=== PATIENT | male | born 1940 | race Caucasian/White ===

== ENCOUNTER → 2017-01-12 | Outpatient (CLI) | payer MEDICARE, OTHER ==
--- NOTE | 2017-01-12 15:43 | PN ---
DATE OF SERVICE: 01/12/2017 This patient is a 76-year-old gentleman who has been followed in the sleep center for treatment of obstructive sleep apnea/hypopnea syndrome. The patient has been on treatment with CPAP for many years. Last titration was done in 2010. Since that time, the patient has been on treatment with CPAP after he lost weight on 7 cm of water. Recently the patient developed more problems related to prostate and he significantly increased the number of episodes when he goes to the bathroom at night. At present some medication related to prostate was added at increased dose and with that he is improving. I checked his CPAP unit. CPAP pressure is 7 cm of water. Usage is 27 out of 30 nights for more than 4 hours. Average usage is 6 hours. Pressure is 7 cm of water. No leak at all. Apnea/hypopnea index for last month was 3.6, for the last night 1.1. RAMP is an automatic regimen. [place] Sleepiness Scale today is 5. MEDICATIONS: 1. Atenolol. 2. Doxazosin. 3. Finasteride. 4. Metformin. 5. Nexium. 6. Simvastatin. 7. Aspirin. 8. Vitamin supplement. 9. Glucosamine. 10. Gingko biloba. 11. Delmar-3. 12. Glucosamine. 13. Antihistamines as necessary. During physical exam, patient is in no distress. BP 122/64, HR 60, RR 16. Height 5 feet 11-1/2 inches. Weight 263. BMI 36. Temperature 97.9. Oxygen saturation at room air 93%. HEENT: PERRLA. EOMI. Evaluation of oropharynx showed tongue protrudes midline. Low position of soft palate. NECK: Supple. No JVD. Thyroid is not palpable. LUNGS: Clear to percussion and to auscultation. Good air exchange. No wheezing or rhonchi. HEART: S1, S2 regular. No murmurs, gallops or rubs. ABDOMEN: Obese. EXTREMITIES: Tendency for swelling of ankles. TELEPHONE OPERATOR: Awake, alert and oriented x3. Cranial nerves 2 through 7 are intact. There is no fasciculation or atrophy noted. No focal deficits observed. IMPRESSION: 1. Obstructive sleep apnea/hypopnea syndrome, controlled with CPAP, but the patient developed episodes of nocturia. 2. Obesity. 3. Benign prostate hypertrophy. 4. Diabetes mellitus. 5. Hyperlipidemia. 6. Hypertension. 7. Acid reflux. PLAN: 1. I adjusted CPAP up to 10 cm of water. 2. Losing weight. 3. Patient will continue to use his CPAP equipment every night for the whole night. 4. No driving if feeling any sleepiness. 5. Prescription for all necessary CPAP supplies. Thank you very much for allowing me to participate in the management of your patient. Sincerely, Erick Lee. , PhD, FAASM. Diplomat of [place] [employer] Medicine, Sleep Medicine Board by [place] [employer] Specialities [place] Board of Internal Medicine Manager Ship of [facility] [place] [facility]
== END | disposition home or self-care (01) ==
LOC: SLEEP 13:44
PROVIDERS: ATTEND Internal Medicine
DX: G47.33 Obstructive sleep apnea (adult) (pediatric) (principal); E66.9 Obesity, unspecified; N40.0 Benign prostatic hyperplasia without lower urinary tract symptoms; E11.9 Type 2 diabetes mellitus without complications; E78.5 Hyperlipidemia, unspecified; I10 Essential (primary) hypertension; K21.9 Gastro-esophageal reflux disease without esophagitis; Z79.899 Other long term (current) drug therapy; Z79.82 Long term (current) use of aspirin

== ENCOUNTER → 2018-01-10 | Outpatient (CLI) | payer MEDICARE, OTHER ==
--- NOTE | 2018-01-10 15:02 | PN ---
PROGRESS NOTE DATE OF SERVICE: 01/10/2018. 77-year-old gentleman has been followed in Sleep Center for treatment of obstructive sleep apnea-hypopnea syndrome. The patient continued to use his CPAP equipment successfully every night without significant problems. Sleeps well. No sleepiness during the day. [place] Sleepiness Scale is in normal range 4. I checked patient's CPAP unit. CPAP pressure is 10 cm of water. Usage is every night 30/30 nights more than 4 hours, every 6.7 hours. No leak from his mask at all. Apnea- hypopnea index is 3.5, which is totally normal range. MEDICATIONS: Atenolol, doxazosin, finasteride, metformin, omeprazole, simvastatin, aspirin, some supplement for the foot occasionally ibuprofen, antihistamines, occasionally steroid nasal sprays for the nasal problems. PHYSICAL EXAM: Patient in no distress, BP 127/70, HR 59, RR around 20, height 6 feet 0 inches, weight 266.0, BMI 35.9, temperature 98.5, oxygen saturation on room air 95%. Oropharynx low position of soft palate. ABDOMEN: Obese. Neck: Supple, no JVD. Thyroid is not palpable. LUNGS: Few rales on the bases of the lungs. HEART S1, S2 regular. No murmurs, gallops, or rubs. ABDOMEN: Obese. Soft and nontender. Bowel sounds are present. No organomegaly appreciated. EXTREMITIES: 1+ ankle edema. No clubbing or cyanosis. PULP DRIER Awake, alert, and oriented X3. Cranial nerves 2 to 7 intact. There is no fasciculation or atrophy. noted. No focal deficits observed. IMPRESSION: 1. Obstructive sleep apnea-hypopnea syndrome. Patient demonstrated 100% compliance with treatment benefitting from treatment. 2. Obesity, patient increased weight on 3 pounds. 3. Benign prostatic hypertrophy. 4. Hypertension. 5. Hyperlipidemia. 6. Acid reflux. 7. Diabetes mellitus. PLAN: 1. Prescription for all necessary CPAP supplies including mask, tube, filters. 2. Losing weight. 3. Continue to use CPAP equipment every night for the whole night with the same range of pressure. 4. No driving if feeling any sleepiness. 5. Followup visit in 1 year or earlier if patient has any problems. Thank you very much for allowing me to participate in management of your patient. Sincerely, Erick Lee MD, PhD, FAASM Diplomat of [place] [employer] Specialties [place] Board of Internal Medicine [employer] Equipment Mechanic Supervisor of [facility] [place] MMPENGL / DANE: [phone] /
== END | disposition home or self-care (01) ==
LOC: SLEEP 13:50
PROVIDERS: ATTEND Internal Medicine
DX: G47.33 Obstructive sleep apnea (adult) (pediatric) (principal); E66.9 Obesity, unspecified; N40.0 Benign prostatic hyperplasia without lower urinary tract symptoms; I10 Essential (primary) hypertension; E78.5 Hyperlipidemia, unspecified; K21.9 Gastro-esophageal reflux disease without esophagitis; E11.9 Type 2 diabetes mellitus without complications; Z79.84 Long term (current) use of oral hypoglycemic drugs; Z79.899 Other long term (current) drug therapy; Z79.82 Long term (current) use of aspirin; Z79.1 Long term (current) use of non-steroidal anti-inflammatories (NSAID); Z68.35 Body mass index [BMI] 35.0-35.9, adult

== ENCOUNTER → 2019-01-17 | Outpatient (CLI) | payer MEDICARE ==
--- NOTE | 2019-01-17 14:26 | SFUN ---
SLEEP CENTER FOLLOW UP NOTE DATE OF SERVICE: 01/17/2019 A 78-year-old gentleman who has been followed in the Sleep Center for treatment of obstructive sleep apnea-hypopnea syndrome. Patient continued to use CPAP equipment every night for the whole night without any significant problems. He sleeps well, no sleepiness. [place] Sleepiness Scale is 4. I checked CPAP unit. CPAP pressure is 10 cm of water. Usage is 30/30 nights for more than 4 hours with average usage is 6.9 hours per night. Leak is 0 L/minute. Apnea- hypopnea index is 4.3, which is normal range. MEDICATIONS: , atenolol, finasteride, metformin, omeprazole, simvastatin, aspirin, antihistamines, occasionally steroid nasal spray. PHYSICAL EXAM: Patient in no distress. BP 120/70, HR 56, RR 14, height 6 foot, 1 inch, weight, 263 pounds which is 3 pounds less than during the last visit, temperature 98.9, oxygen saturation at room air 95%. OROPHARYNX: Low position of soft palate. Mallampati 4. NECK: 18 inches in circumference. LUNGS Clear to percussion and to auscultation. Good air exchange. No wheezing or rhonchi. HEART S1, S2 regular. No murmurs, gallops, or rubs. ABDOMEN Soft and nontender. Bowel sounds are present. No organomegaly appreciated. EXTREMITIES No clubbing or cyanosis. LABORATORY ASSISTANT Awake, alert, and oriented X3. Cranial nerves 2 to 7 intact. There is no fasciculation or atrophy. noted. No focal deficits observed. IMPRESSION: 1. Obstructive sleep apnea-hypopnea syndrome. Patient demonstrated 100% compliance with treatment, benefitting from treatment. 2. Obesity. 3. History of benign prostatic hypertrophy. 4. Hypertension. 5. Hyperlipidemia. 6. Acid reflux. 7. Diabetes mellitus. PLAN: 1. Patient will continue to use CPAP equipment every night for the whole night 2. I will maintain all necessary prescriptions for CPAP supplies 3. Continue losing weight. 2. No driving if feeling sleepiness. 3. Sleep hygiene with time in bed for at least 8 hours. 4. No driving if feeling sleepiness. 5. Followup visit in 1 year or earlier if patient has any problems. Thank you very much for allowing me to participate in the management of your patient. Sincerely, Erick Lee MD, PhD, FAASM Diplomat of [place] [employer] Specialties [place] Board of Internal Medicine Tribunal Member of [facility] [place] MMPENGL / JOEN: [id number] /
== END | disposition home or self-care (01) ==
LOC: SLEEP 13:15
PROVIDERS: ATTEND Internal Medicine
DX: G47.33 Obstructive sleep apnea (adult) (pediatric) (principal); I10 Essential (primary) hypertension; E11.9 Type 2 diabetes mellitus without complications; E78.5 Hyperlipidemia, unspecified; K21.9 Gastro-esophageal reflux disease without esophagitis; E66.9 Obesity, unspecified; Z87.438 Personal history of other diseases of male genital organs; Z79.84 Long term (current) use of oral hypoglycemic drugs; Z79.82 Long term (current) use of aspirin; Z79.899 Other long term (current) drug therapy; Z99.89 Dependence on other enabling machines and devices

== ENCOUNTER → 2019-04-22 | Outpatient (CLI) | payer MEDICARE ==
--- NOTE | 2019-04-22 13:13 | XR ---
EXAMINATION TYPE: XR lumbosacral spine min 4V DATE OF EXAM: 04/22/2019 COMPARISON: None HISTORY: Right and left knee pain, and 54.5 low back pain TECHNIQUE: 5 view lumbar spine FINDINGS: There are 5 lumbar-type vertebral bodies. The pedicles are intact. Facets have mild degener ative change L4-5 and L5-S1. No spondylolytic defects are evident. Disc heights are narrowed posterio rly through the lumbar spine vertebral body heights are preserved. IMPRESSION: 1. Mild degenerative disc change within the posterior disc spaces of the lumbar spine. 2. Mild lower lumbar spine facet degenerative change.
--- NOTE | 2019-04-22 13:15 | XR ---
EXAMINATION TYPE: XR knee complete bilateral DATE OF EXAM: 04/22/2019 COMPARISON: None HISTORY: Bilateral knee pain TECHNIQUE: Right knee is examined in 3 views. Left knee is examined in 3 views. FINDINGS: No joint effusions are evident. Posterior-inferior patellar spurring is present on the right. There i s narrowing of the medial compartment joint space of the left knee. Milder medial compartment joint s pace narrowing of the right knee is present. No acute fractures or dislocations are evident. IMPRESSION: 1. 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
== END | disposition home or self-care (01) ==
LOC: RADXRMAIN 12:27
PROVIDERS: ATTEND Family Medicine
DX: M17.0 Bilateral primary osteoarthritis of knee (principal); M51.36 Other intervertebral disc degeneration, lumbar region; M47.816 Spondylosis without myelopathy or radiculopathy, lumbar region
CPT/HCPCS: 72110

== ENCOUNTER 2019-05-17 07:33 | Day surgery (SDC) | payer MEDICARE ==
[2019-05-15 11:46] VITALS: BMI 34.9
[~2019-05-17 07:33] MED LIST: LACTATED RINGERS 1,000 ML IV SCH; LIDOCAINE 1% 20 ML VIAL (10MG/ML) FOR IV START INTRADERMA PRN
[2019-05-17 08:08] VITALS: TEMP 97
[2019-05-17] MEDS ORDERED: LIDOCAINE 1% 20 ML VIAL (10MG/ML) FOR IV START SQ ONE (08:18)
[2019-05-17 08:20] LABS: Glucose,Whole Blood 119 mg/dL (75-99)
[2019-05-17] MEDS ORDERED: GLYCOPYRROLATE 0.2 MG/ML 2 ML VIAL ONE (08:37)
[2019-05-17] MEDS ORDERED: PROPOFOL 10 MG/ML 20 ML VIAL IV ONE (08:37)
[2019-05-17] MEDS ORDERED: LIDOCAINE 1% INJ 10MG/ML (20 ML MDV) ONE (08:37)
--- NOTE | 2019-05-17 09:08 | P.PCN ---
Date of Procedure: 05/17/19 Procedure(s) Performed: BRIEF HISTORY: Patient is a 79-year-old, pleasant, white male, scheduled for an upper endoscopy as a part of value should long-standing history of GERD and intermittent dysphagia to solids for the last 3 months duration. Has been on Nexium any milligrams daily for almost 10 years. PROCEDURE PERFORMED: Esophagogastroduodenoscopy with biopsy. PREOPERATIVE DIAGNOSIS: Long-standing history of GERD and intermittent dysphagia to solids. IV sedation per anesthesia. PROCEDURE: After informed consent was obtained, the patient was brought into the endoscopy unit. IV sedation was administered by Anesthesia under continuous monitoring. Initially the Olympus GIF-140 video endoscope was inserted into the mouth. Esophagus intubated without any difficulty. It was gradually advanced into the stomach and duodenum and carefully examined. The bulb and the second part of the duodenum appeared normal. The scope at this time was withdrawn to the stomach, adequately insufflated with air, and upon careful examination, mucosa of the antrum, had gastric polyps noted largest measuring 5 mm which was biopsied. The body, cardia and the fundus appeared normal. The scope was then withdrawn into the esophagus. There was a moderate to large size paraesophageal hiatal hernia noted. The GE junction was located at 39 cm from the incisors. The esophagus appeared normal. There were no erosions or ulcerations seen and the patient tolerated the procedure well. IMPRESSION: 1. Normal-appearing esophagus with no evidence of esophagitis or esophageal stricture. 2. Moderate to large size paraesophageal hiatal hernia. 3. Gastric polyps status post biopsy RECOMMENDATIONS: The findings of this examination were discussed with the patient as well as a family. He was advised to follow with the biopsy results. He will continue with Nexium 20 mg daily and follow antireflux measures..
[2019-05-17 09:12] VITALS: RESP 18
[2019-05-17 09:35] VITALS: BP 152/89; PULSE 61
== END 2019-05-17 09:40 | disposition home or self-care (01) ==
LOC: ORWHC2ENDO 07:33
PROVIDERS: ATTEND Internal Medicine Gastroenterology
DX: K31.7 Polyp of stomach and duodenum (principal); K44.9 Diaphragmatic hernia without obstruction or gangrene; R13.10 Dysphagia, unspecified; K21.9 Gastro-esophageal reflux disease without esophagitis; I10 Essential (primary) hypertension; G47.33 Obstructive sleep apnea (adult) (pediatric); Z99.89 Dependence on other enabling machines and devices; E11.9 Type 2 diabetes mellitus without complications; Z79.84 Long term (current) use of oral hypoglycemic drugs; Z79.82 Long term (current) use of aspirin; Z79.899 Other long term (current) drug therapy
CPT/HCPCS: 88305; 43239; J2001; J2704

== ENCOUNTER → 2020-04-30 | Outpatient (CLI) | payer MEDICARE ==
--- NOTE | 2020-04-30 19:02 | SFUN ---
SLEEP CENTER FOLLOW UP NOTE DATE OF SERVICE: 04/30/2020 This patient is a 80-year-old gentleman who has been followed in Sleep Center for treatment of obstructive sleep apnea-hypopnea syndrome. Patient is continuing to use his CPAP equipment every night for the whole night. He sleeps well with the machine. [place] Sleepiness Scale today is only 2. I checked his CPAP unit. CPAP pressure is 10 cm of water. Usage is 30/30 nights for more than 4 hours. Average usage is 6.9 hours per night. Leak is zero liters per minute. Apnea-hypopnea index is 5.5, which is slightly above 5, which is considered to be on the borderline of normal. The patient is using a nasal pillow mask. MEDICATIONS: 1. Atenolol 25 mg once a day. 2. Finasteride 5 mg once a day. 3. Simvastatin 40 mg once a day. 4. Nexium 40 mg once a day. 5. Metformin 500 mg twice a day. 6. Aspirin 81 mg once a day. 7. Tamsulosin 0.4 mg once a day. PHYSICAL EXAMINATION: GENERAL: A pleasant patient in no distress. VITAL SIGNS: BP 127/77, HR 67, RR 16, height 6 feet, weight 260.8 pounds, BMI 35.2, temperature 98.0. Oxygen saturation at room air 95%. HEENT: PERRLA, EOMI. Evaluation of oropharynx showed tongue protrudes midline. Extremely low position of soft palate. Mallampati IV. NECK: Supple. No JVD. Thyroid is not palpable. LUNGS: Clear to percussion and to auscultation. Good air exchange. No wheezing or rhonchi. HEART: S1, S2 regular. No murmurs, gallops or rubs. ABDOMEN: Obese. EXTREMITIES: No clubbing or cyanosis. FINE UNHAIRER: Awake, alert, and oriented X3. Cranial nerves 2 to 7 intact. There is no fasciculation or atrophy. noted. No focal deficits observed. IMPRESSION: 1. Obstructive sleep apnea-hypopnea syndrome. Patient demonstrated 100% compliance with treatment, benefitting from treatment. 2. Obesity. 3. Benign prostatic hypertrophy. 4. Hypertension. 5. Hyperlipidemia. 6. Acid reflux. 7. Diabetes mellitus. PLAN: 1. I increased pressure in CPAP unit up to 11 cm of water. 2. Patient will continue to use PAP equipment every night for the whole night. 3. Sleep hygiene with regular time in bed for at least 7-1/2 to 8 hours. 4. Precautions related to driving. No driving if feeling sleepiness. 5. I will maintain all necessary prescription for PAP supplies including mask, tube, filters. 6. Watching weight. 7. No driving if feeling sleepiness. 8. Follow-up visit in 6 months or earlier if patient has any problems. Thank you very much for allowing me to participate in the management of your patient. Sincerely, Erick Lee MD, PhD, FAASM Diplomat of [place] Board of Medical Specialties [place] Board of Internal Medicine Green Chainer of [facility] [place] MMODL / IJN: [id number] /
== END | disposition home or self-care (01) ==
LOC: SLEEP 14:53
PROVIDERS: ATTEND Internal Medicine
DX: G47.33 Obstructive sleep apnea (adult) (pediatric) (principal); N40.0 Benign prostatic hyperplasia without lower urinary tract symptoms; I10 Essential (primary) hypertension; E78.5 Hyperlipidemia, unspecified; K21.9 Gastro-esophageal reflux disease without esophagitis; E11.9 Type 2 diabetes mellitus without complications; E66.9 Obesity, unspecified; Z79.899 Other long term (current) drug therapy; Z79.84 Long term (current) use of oral hypoglycemic drugs; Z79.83 Long term (current) use of bisphosphonates; Z99.89 Dependence on other enabling machines and devices

== ENCOUNTER → 2020-10-29 | Outpatient (CLI) | payer MEDICARE ==
--- NOTE | 2020-10-29 16:06 | SFUN ---
SLEEP CENTER FOLLOW UP NOTE DATE OF SERVICE: 10/29/2020 This 80-year-old gentleman has been followed in Sleep Center for treatment of obstructive sleep apnea-hypopnea syndrome. During his previous visit, because of slight increase in apnea-hypopnea index to 5.5, I increased pressure in his CPAP unit to 11 cm of water. Patient continues to use his CPAP equipment. No discomfort related to using the machine. He is receiving his CPAP supplies on time. [place] Sleepiness Scale today is 4. I checked his CPAP unit. CPAP pressure is 11 cm of water. Usage is 30/30 nights for more than 4 hours with average usage 6.5 hours per night. No leak at all; zero liters per minute. Apnea-hypopnea index came down to 4.3, which is in normal range. MEDICATIONS: 1. Atenolol 25 mg once a day. 2. Finasteride 5 mg once a day. 3. Simvastatin 40 mg once a day. 4. Nexium 40 mg once a day. 5. Metformin 500 mg twice a day. 6. Aspirin 81 mg once a day. 7. Tamsulosin 0.4 mg once a day. 8. Losartan 25 mg once a day. 9. Multivitamins. PHYSICAL EXAMINATION: GENERAL: A pleasant patient in no distress. VITAL SIGNS: BP 141/78, HR 80, RR 18, height 6 feet 0 inches, weight 258.6, temperature 97.9, oxygen saturation at room air 98%. Body mass index 34.9. The patient lost about 2 pounds since his previous visit. HEENT: PERRLA, EOMI. Evaluation of oropharynx showed tongue protrudes midline. Extremely low position of soft palate. Mallampati IV. NECK: Supple. No JVD. Thyroid is not palpable. LUNGS: Clear to percussion and to auscultation. Good air exchange. No wheezing or rhonchi. HEART: S1, S2 regular. No murmurs, gallops or rubs. ABDOMEN: Obese. EXTREMITIES: No clubbing or cyanosis. VETERINARY LABORATORY DIAGNOSTICIAN: Awake, alert, and oriented X3. Cranial nerves 2 to 7 intact. There is no fasciculation or atrophy. noted. No focal deficits observed. IMPRESSION: 1. Obstructive sleep apnea-hypopnea syndrome. The patient demonstrated 100% compliance with treatment, benefitting from treatment. After adjustment of CPAP pressure during previous visit, apnea-hypopnea index was reduced to normal range. 2. Obesity. 3. Benign prostatic hypertrophy. 4. Hypertension. 5. Hyperlipidemia. 6. Acid reflux. 7. Diabetes mellitus. PLAN: 1. Patient will continue to use PAP equipment every night for the whole night. 2. Sleep hygiene with regular time in bed for at least 7-1/2 to 8 hours. 3. Precautions related to driving. No driving if feeling sleepiness. 4. I will maintain all necessary prescription for PAP supplies including mask, tube, filters. 5. Watching weight. 6. Follow-up visit in 6 months or earlier if patient has any problems. Thank you very much for allowing me to participate in the management of your patient. Sincerely, Erick Lee MD, PhD, FAASM Diplomat of [place] [employer] of Medical Specialties [place] Board of Internal Medicine Air And Hydronic Balancing Technician of [facility] [place] MMPENGL / DANE: [phone] /
== END ==
LOC: SLEEP 13:15
PROVIDERS: ATTEND Internal Medicine
DX: G47.33 Obstructive sleep apnea (adult) (pediatric) (principal); E66.9 Obesity, unspecified; N40.0 Benign prostatic hyperplasia without lower urinary tract symptoms; I10 Essential (primary) hypertension; E78.5 Hyperlipidemia, unspecified; K21.9 Gastro-esophageal reflux disease without esophagitis; E11.9 Type 2 diabetes mellitus without complications; Z68.34 Body mass index [BMI] 34.0-34.9, adult; Z99.89 Dependence on other enabling machines and devices; Z79.84 Long term (current) use of oral hypoglycemic drugs; Z79.899 Other long term (current) drug therapy; Z87.891 Personal history of nicotine dependence

== ENCOUNTER → 2021-05-06 | Outpatient (CLI) | payer MEDICARE ==
--- NOTE | 2021-05-06 15:09 | SFUN ---
SLEEP CENTER FOLLOW UP NOTE DATE OF SERVICE: 05/06/2021. 81-year-old gentleman who has been followed in Sleep Center for treatment of obstructive sleep apnea-hypopnea syndrome. Patient continued to use his CPAP equipment every night. No snoring with the machine. [place] Sleepiness Scale is 2. I checked his CPAP unit. Pressure is 11 cm of water. Usage is 30/30 nights for more than 4 hours, average 6.1 hours per night. Leak is 0 L/minute. Apnea-hypopnea index increased to 9.1. During the previous visit it was 4.3. CURRENT MEDICATIONS: Nexium 40 mg once a day, metformin 500 mg twice a day, tamsulosin 0.4 mg once a day, finasteride 5 mg once a day, losartan 25 mg once a day, atenolol 25 mg once a day, simvastatin 40 mg once a day, aspirin 81 mg once a day, different supplements including multivitamins, minerals, [place] fish oil, turmeric, . PHYSICAL EXAMINATION: GENERAL: Patient in no distress. BP 158/80, HR 60, RR 15, height 6 feet 0, weight 264.4. Patient increased his weight around 6 pounds since last visit. Oropharynx: Extremely low position of soft palate, Mallampati 4. NECK: Supple, no JVD. Thyroid is not palpable. LUNGS: Clear to percussion and to auscultation. Good air exchange. No wheezing or rhonchi. HEART: S1, S2 regular. No murmurs, gallops, or rubs. ABDOMEN: Obese. Soft and nontender. Bowel sounds are present. No organomegaly appreciated. EXTREMITIES: No clubbing or cyanosis. DATA POWER CONSULTANT: Awake, alert, and oriented X3. Cranial nerves 2 to 7 intact. There is no fasciculation or atrophy. noted. No focal deficits observed. IMPRESSION: 1. Obstructive sleep apnea-hypopnea syndrome. Patient demonstrated 100% compliance with treatment benefitting from treatment. Presently, reading from the machine showed increasing apnea-hypopnea index to 9.1. During the previous visit it was 4.3. 2. Obesity, patient increased weight of 6 pounds. 3. Benign prostatic hypertrophy. 4. Hypertension. 5. Hyperlipidemia. 6. Acid reflux. 7. Diabetes mellitus. PLAN: 1. I changed regimen of the machine to auto. Range of the pressure is 6-14 cm of water. 2. Patient will continue to use PAP equipment every night for the whole night. 3. Sleep hygiene with regular time in bed for at least 7-1/2 to 8 hours. 4. Precautions related to driving. No driving if feeling sleepiness. 5. I will maintain all necessary prescription for PAP supplies including mask, tube, filters. 6. Watching weight. 7. Follow-up visit in 3 months or earlier if patient has any problems. Thank you very much for allowing me to participate in management of your patient. Sincerely, Erick Lee MD, PhD, FAASM Diplomat of [place] [employer] Specialties Sleep Medicine Board of [place] Board of Internal Medicine Technical Aide of [facility] [place] MMODL / IJN: [id number] /
== END ==
LOC: SLEEP 13:04
PROVIDERS: ATTEND Internal Medicine
DX: G47.33 Obstructive sleep apnea (adult) (pediatric) (principal); E66.9 Obesity, unspecified; N40.0 Benign prostatic hyperplasia without lower urinary tract symptoms; I10 Essential (primary) hypertension; E78.5 Hyperlipidemia, unspecified; K21.9 Gastro-esophageal reflux disease without esophagitis; E11.9 Type 2 diabetes mellitus without complications; Z99.89 Dependence on other enabling machines and devices; Z87.891 Personal history of nicotine dependence; Z79.84 Long term (current) use of oral hypoglycemic drugs; Z79.899 Other long term (current) drug therapy

== ENCOUNTER → 2021-09-02 | Outpatient (CLI) | payer MEDICARE ==
--- NOTE | 2021-09-02 14:57 | SFUN ---
SLEEP CENTER FOLLOW UP NOTE DATE OF SERVICE: 09/02/2021 81-year-old gentleman has been followed in Sleep Center for treatment of obstructive sleep apnea-hypopnea syndrome. During the previous visit because apnea-hypopnea index was increased, I changed regimen in the machine. It was 11 cm of water pressure before and I changed it to the range of the pressure of 6-14 cm of water. The patient is able to continue to use his machine every night for the whole night. He feels that the pressure is too low when he started to use machine. I checked his CPAP unit. Range of the pressure is 6-14, average pressure 13.8. Usage 29/30 nights for more than 4 hours. Leak is 0 L/minute which is perfect. Apnea- hypopnea index still increased to 10.0. Apnea-hypopnea index of 3, which is normal. MEDICATIONS: Nexium 40 mg once a day, metformin 500 mg twice a day, tamsulosin 0.4 mg once a day, finasteride 5 mg once a day, losartan 25 mg once a day, atenolol 25 mg once a day, simvastatin 40 mg once a day, aspirin 81 mg once a day. PHYSICAL EXAMINATION: GENERAL: Patient in no distress. BP 143/86, HR 64, RR 16, weight 263 pounds, height 6 feet 0 inches. Oropharynx: Extremely low position of soft palate, Mallampati 4. NECK: Supple, no JVD. Thyroid is not palpable. LUNGS: Clear to percussion and to auscultation. Good air exchange. No wheezing or rhonchi. HEART: S1, S2 regular. No murmurs, gallops, or rubs. ABDOMEN: Obese. Soft and nontender. Bowel sounds are present. No organomegaly appreciated. EXTREMITIES: No clubbing or cyanosis. COSTUMER ASSISTANT: Awake, alert, and oriented X3. Cranial nerves 2 to 7 intact. There is no fasciculation or atrophy. noted. No focal deficits observed. IMPRESSION: 1. Obstructive sleep apnea-hypopnea syndrome. Patient demonstrated great compliance with treatment. Apnea-hypopnea index still slightly above normal range, although he sleeps well. Feels that it may be not enough pressure when he started to use CPAP. 2. Obesity. 3. Hypertension. 4. Benign prostatic hypertrophy. 5. Hyperlipidemia. 6. Acid reflux. 7. Diabetes mellitus. PLAN: 1. I changed regimen in the AutoPAP unit to the range of the pressure from 7-16. 2. Patient will continue to use PAP equipment every night for the whole night. 3. Sleep hygiene with regular time in bed for at least 7-1/2 to 8 hours. 4. Precautions related to driving. No driving if feeling sleepiness. 5. I will maintain all necessary prescription for PAP supplies including mask, tube, filters. 6. Watching weight. 7. Follow-up visit in 6 months or earlier if patient has any problems. Thank you very much for allowing me to participate in the management of your patient. Sincerely, Erick Lee MD, PhD, FAASM Diplomat of [place] [employer] Specialties Sleep Medicine Board of [place] Board of Internal Medicine Tibco Developer of [facility] [place] MMODL / JOEN: [id number] /
== END ==
LOC: SLEEP 11:39
PROVIDERS: ATTEND Internal Medicine
DX: G47.33 Obstructive sleep apnea (adult) (pediatric) (principal); E66.9 Obesity, unspecified; I10 Essential (primary) hypertension; N40.0 Benign prostatic hyperplasia without lower urinary tract symptoms; E78.5 Hyperlipidemia, unspecified; K21.9 Gastro-esophageal reflux disease without esophagitis; E11.9 Type 2 diabetes mellitus without complications; Z87.891 Personal history of nicotine dependence; Z79.84 Long term (current) use of oral hypoglycemic drugs; Z79.899 Other long term (current) drug therapy

== ENCOUNTER → 2021-11-26 | Outpatient (CLI) | payer MEDICARE ==
--- NOTE | 2021-11-26 10:20 | US ---
EXAMINATION TYPE: US duplex aorta DATE OF EXAM: 11/26/2021 COMPARISON: NONE CLINICAL HISTORY: Z87.891 PERSONAL HISTORY OF NICOTINE DEPENDENCE. screening EXAM MEASUREMENTS: Abdominal Aorta: Proximal: 1.8 x 1.6cm Mid: 1.7 x 1.7cm Distal: 1.9 x 1.6cm Bifurcation: RT: 1.0 x 1.1cm LT: 1.0 x 0.8cm visualized portions show no evidence of AAA. Calcifications noted Aorta successfully visualized to the bifurcation. IMPRESSION: No ultrasound evidence for greater than 3.0 cm AAA.
== END | disposition home or self-care (01) ==
LOC: RADUSWWP 08:56
PROVIDERS: ATTEND Internal Medicine
DX: Z13.6 Encounter for screening for cardiovascular disorders (principal); Z87.891 Personal history of nicotine dependence
CPT/HCPCS: 93979

== ENCOUNTER → 2022-01-06 | Outpatient (CLI) | payer MEDICARE ==
--- NOTE | 2022-01-06 11:49 | P.PN ---
Subjective DATE: 01/06/2022 FOLLOW UP VISIT. Patient with obstructive sleep apnea hypopnea syndrome return to sleep center for follow-up visit. Patient is using PAP equipment every night for the whole night, getting PAP supplies in time. The patient does not have significant problems with the mask, PAP unit and humidification. [place] sleepiness scale is 3. I checked PAP unit. PAP unit pressure 716 average 14.2 cm H2O. Usage is 100 % for more then 4 hours, average 5.5 hours per night. Leak is 0 l/m, which is perfect. Apnea Hypopnea Index is 3.1, which is normal. MEDICATIONS:1. Nexium 40 mg once a day 2. Metformin 500 mg twice a day 3. Flomax 0.4 mg once a day 4. Proscar 5 mg once a day 5. Losartan 25 mg once a day 6. Atenolol 25 mg once a day 7. Simvastatin 40 mg once a day 8. Aspirin 81 mg once a day During physical exam: GENERAL: A pleasant patient without any distress. VITAL SIGNS: BP 134/71, HR 61, RR 16 , weight 264, height 5 foot 11-1/2 inches, body mass index 36.3, temperature 96.9, oxygen saturation at room air 95% . HEENT: PERRLA, EOMI.low position of soft palate, Mallapati for . NECK: Supple. No JVD. LUNGS: Clear to percussion and to auscultation. Good air exchange. No wheezing or rhonchi. HEART: S1, S2 regular. ABDOMEN: Soft and nontender. Obese EXTREMITIES: No clubbing or cyanosis. S[address] ST[address] VENDOR: Awake, alert, and oriented x3. No focal deficit. Impressions: 1. Obstructive sleep apnea-hypopnea syndrome. Patient demonstrated great compliance with treatment, benefiting from treatment. 2. Obesity body mass index 36.3. 3. Hypertension. 4. Benign prostatic hypertrophy. 5. Hyperlipidemia. 6. Acid reflux. 7. Diabetes mellitus recent hemoglobin A1c according to patient in the range of 6.3. Plan: 1. Continue using PAP equipment every night for the whole night. 2. To change air filter at least 1-2 times per month. 3. PAP unit should stay lower then position of the head. 4. Advised patient to remove all remaining water from humidifier canister daily and make it dry after each usage. Refill canister with fresh distilled water before each usage. 5. Sleep hygiene with regular time in bed for at least 8 hours. 6. Precautions related to driving. No driving if feel any sleepiness. 7. I will maintain prescription for PAP supplies including mask, tube, filters. 8. Follow up visit in 6 months or earlier if patient has any problems. 9. Watching weight. Thank you very much for allowing me to participate in the management of your patient. Erick Lee MD, PhD, FAASM. Diplomat of [place] Board of Sleep Medicine, Sleep Medicine Board by [place] [employer] of [employer] Medicine Airport Sales Agent of [facility] [place]
== END ==
LOC: SLEEP 11:24
PROVIDERS: ATTEND Internal Medicine
DX: G47.33 Obstructive sleep apnea (adult) (pediatric) (principal); E66.9 Obesity, unspecified; I10 Essential (primary) hypertension; E78.5 Hyperlipidemia, unspecified; K21.9 Gastro-esophageal reflux disease without esophagitis; E11.9 Type 2 diabetes mellitus without complications; Z68.36 Body mass index [BMI] 36.0-36.9, adult; N40.0 Benign prostatic hyperplasia without lower urinary tract symptoms; Z79.84 Long term (current) use of oral hypoglycemic drugs; Z99.89 Dependence on other enabling machines and devices; Z79.899 Other long term (current) drug therapy
CPT/HCPCS: 99212

== ENCOUNTER 2022-05-17 07:10 | Day surgery (SDC) | payer MEDICARE ==
[~2022-05-17 07:10] MED LIST changes: -LIDOCAINE 1% 20 ML VIAL (10MG/ML) FOR IV START INTRADERMA PRN
[2022-05-17 08:02] LABS: Glucose,Whole Blood 104 mg/dL (70-110)
[2022-05-17 08:04] VITALS: TEMP 97
[2022-05-17] MEDS ORDERED: PROPOFOL 10 MG/ML 20 ML VIAL IV ONE (08:31)
--- NOTE | 2022-05-17 09:02 | P.PCN ---
Date of Procedure: 05/17/22 Procedure(s) Performed: BRIEF HISTORY: Patient is a 82-year-old pleasant white male scheduled for an elective colonoscopy as a part of evaluation of prior history of colon polyps. PROCEDURE PERFORMED: Colonoscopy snare polypectomy. PREOPERATIVE DIAGNOSIS: History of colon polyps. IV sedation per Anesthesia. PROCEDURE: After informed consent was obtained, the patient, was brought into the endoscopy unit. IV sedation was administered by Anesthesia under continuous monitoring. Digital rectal examination was normal. Initially the Olympus CF-160 flexible video colonoscope was then inserted in the rectum, gradually advanced into the cecum without any difficulty. Careful examination was performed as the scope was gradually being withdrawn. Ileocecal valve and the appendiceal orifice were visualized and appeared normal. Prep was excellent. Mucosa of the cecum appeared normal. In the ascending colon there was a 5 mm polyp that was removed by snare polypectomy. Rest of the, ascending colon, transverse colon, appeared normal. The descending colon there was a 2 cm linear broad-based polyp removed by piecemeal snare polypectomy and complete polypectomy accomplished. Scattered left-sided diverticulosis seen. descending colon, sigmoid colon, and rectum appeared normal. Retroflexion was performed in the rectum and no lesions were seen. The patient tolerated the procedure well. IMPRESSION: 5 mm ascending colon polyp status post polypectomy 2 cm linear broad-based ascending colon polyp status post piecemeal snare polypectomy Scattered left-sided diverticulosis RECOMMENDATIONS: Findings of this examination were discussed with the patient as well as his family. He was advised to follow with the biopsy results and if the biopsy results adenoma he can have a repeat colonoscopy in 3 years based on his overall medical condition.
[2022-05-17 09:26] VITALS: BP 172/86; PULSE 63; RESP 18
== END 2022-05-17 09:58 | disposition home or self-care (01) ==
LOC: ORWHC2ENDO 07:10
PROVIDERS: ATTEND Internal Medicine Gastroenterology
DX: Z12.11 Encounter for screening for malignant neoplasm of colon (principal); D12.2 Benign neoplasm of ascending colon; D12.4 Benign neoplasm of descending colon; K57.30 Diverticulosis of large intestine without perforation or abscess without bleeding
CPT/HCPCS: 88305; 45385; J2704

== ENCOUNTER → 2023-01-11 | Outpatient (CLI) | payer MEDICARE ==
--- NOTE | 2023-01-11 17:30 | P.PN ---
Subjective DATE: 01/11/2023 FOLLOW UP VISIT. Patient with obstructive sleep apnea hypopnea syndrome return to sleep center for follow-up visit. Information from previous visit have been reviewed. Patient is using PAP equipment every night for the whole night, getting PAP supplies in time. The patient does not have significant problems with the mask, PAP unit and humidification. [place] sleepiness scale is 2, which is normal. I checked information from PAP unit. PAP unit pressure 7-18, average 14.3 cm H2O. Usage is 100 % for more then 4 hours, average 5.1 hours per night. Leak is 0 l/m, which is perfect. Apnea Hypopnea Index is 4.4, which is normal. It showed improvements comparing with the previous visit when I increased pressure in CPAP unit. MEDICATIONS:1. Losartan 100 mg once a day 2. Nexium 40 mg once a day 3. Metformin 50 mg twice a day 4. Flomax 0.4 mg once a day 5. Atenolol 25 mg once a day 6. Proscar 5 mg once a day 7. Simvastatin 40 mg once a day During physical exam: GENERAL: A pleasant patient without any distress. VITAL SIGNS: BP 138/75, HR 70, RR 12 , weight 267.4, temperature 97.2, oxygen saturation at room air 97 % . HEENT: PERRLA, EOMI.low position of soft palate, Mallapati 4 . NECK: Supple. No JVD. LUNGS: Clear to percussion and to auscultation. Good air exchange. No wheezing or rhonchi. HEART: S1, S2 regular. ABDOMEN: Soft and nontender.[] EXTREMITIES: No clubbing or cyanosis. FISHER SWORDFISH: Awake, alert, and oriented x3. No focal deficit. Impressions: 1. Obstructive sleep apnea-hypopnea syndrome. Patient demonstrated great compliance with treatment, benefiting from treatment. 2. Hypertension. 3. Obesity BMI 36.8. 4. BPH. 5. Diabetes mellitus. 6. Hyperlipidemia. 7. Acid reflux. Plan: 1. Continue using PAP equipment every night for the whole night. 2. To change air filter at least 1-2 times per month. 3. PAP unit should stay lower then position of the head. 4. Advised patient to remove all remaining water from humidifier canister daily and make it dry after each usage. Refill canister with fresh distilled water before each usage. 5. Sleep hygiene with regular time in bed for at least 8 hours. 6. Precautions related to driving. No driving if feel any sleepiness. 7. I will maintain prescription for PAP supplies including mask, tube, filters. 8. Watching and losing weight. 9. .Follow up visit in 6 months or earlier if patient has any problems. Thank you very much for allowing me to participate in the management of your patient. Erick Lee MD, PhD, FAASM. Diplomat of [place] Board of Sleep Medicine, Sleep Medicine Board by [place] Board of Internal Medicine [employer] of [facility] [place]
== END ==
LOC: 3 N SLEEP 15:13
PROVIDERS: ATTEND Internal Medicine
DX: G47.33 Obstructive sleep apnea (adult) (pediatric) (principal); I10 Essential (primary) hypertension; E66.9 Obesity, unspecified; Z68.36 Body mass index [BMI] 36.0-36.9, adult; E78.5 Hyperlipidemia, unspecified; E11.9 Type 2 diabetes mellitus without complications; K21.9 Gastro-esophageal reflux disease without esophagitis; N40.0 Benign prostatic hyperplasia without lower urinary tract symptoms; Z79.84 Long term (current) use of oral hypoglycemic drugs; Z79.899 Other long term (current) drug therapy; Z99.89 Dependence on other enabling machines and devices; Z87.891 Personal history of nicotine dependence
CPT/HCPCS: 99212

== ENCOUNTER → 2023-08-07 | Outpatient (CLI) | payer MEDICARE ==
--- NOTE | 2023-08-07 16:40 | P.PN ---
Subjective DATE: 11/20/2023 FOLLOW UP VISIT. Patient with obstructive sleep apnea hypopnea syndrome return to sleep center for follow-up visit. Information from previous visit have been reviewed. Patient is using PAP equipment every night for the whole night, getting PAP supplies in time. The patient does not have significant problems with the mask, PAP unit and humidification. [place] sleepiness scale is 3, which is perfect. I checked information from PAP unit. PAP unit pressure 7-18, average 15.8 cm H2O. Usage is 100 % for more then 4 hours, average 5.6 hours per night. Leak is 0 l/m, which is perfect. Apnea Hypopnea Index is 5.7, which is borderline. MEDICATIONS:1. Losartan 100 mg once a day 2. Metformin 500 mg twice a day 3. Flomax 0.4 mg once a day 4. Atenolol 25 mg once a day 5. Proscar 5 mg once a day 6. Simvastatin 40 mg once a day 7. Nexium 40 mg once a day 8. Aspirin 81 mg once a day During physical exam: GENERAL: A pleasant patient without any distress. VITAL SIGNS: BP 127/76, HR 62, RR 16 , weight 262, temperature 98.1, oxygen saturation at room air 96 % . HEENT: PERRLA, EOMI.low position of soft palate, Mallapati 4 . NECK: Supple. No JVD. LUNGS: Clear to percussion and to auscultation. Good air exchange. No wheezing or rhonchi. HEART: S1, S2 regular. ABDOMEN: Soft and nontender. Slightly obese EXTREMITIES: No clubbing or cyanosis. JAVA APPLICATION ENGINEER: Awake, alert, and oriented x3. No focal deficit. Impressions: 1. Obstructive sleep apnea-hypopnea syndrome. Patient demonstrated great compliance with treatment, benefiting from treatment. 2. Hypertension. 3. Diabetes mellitus. 4. Hyperlipidemia. 5. Acid reflux. 6. BPH. 7. Obesity, BMI 36.5, patient lost 5 pounds comparing with previous visit. Plan: 1. Continue using PAP equipment every night for the whole night. 2. To change air filter at least 1-2 times per month. 3. PAP unit should stay lower then position of the head. 4. Advised patient to remove all remaining water from humidifier canister daily and make it dry after each usage. Refill canister with fresh distilled water before each usage. 5. Sleep hygiene with regular time in bed for at least 8 hours. 6. Precautions related to driving. No driving if feel any sleepiness. 7. I will maintain prescription for PAP supplies including mask, tube, filters. 8. Follow up visit in 6 months or earlier if patient has any problems. 9. Watching and continue losing weight. Thank you very much for allowing me to participate in the management of your patient. Erick Lee MD, PhD, FAASM. Diplomat of [place] Board of Sleep Medicine, Sleep Medicine Board by [place] Board of Internal Medicine Integration Developer of [facility] [place]
== END ==
LOC: 3 N SLEEP 13:58
PROVIDERS: ATTEND Internal Medicine
DX: G47.33 Obstructive sleep apnea (adult) (pediatric) (principal); I10 Essential (primary) hypertension; E11.9 Type 2 diabetes mellitus without complications; E78.5 Hyperlipidemia, unspecified; K21.9 Gastro-esophageal reflux disease without esophagitis; N40.0 Benign prostatic hyperplasia without lower urinary tract symptoms; E66.9 Obesity, unspecified; Z68.36 Body mass index [BMI] 36.0-36.9, adult; Z79.84 Long term (current) use of oral hypoglycemic drugs; Z79.899 Other long term (current) drug therapy; Z99.89 Dependence on other enabling machines and devices; Z79.82 Long term (current) use of aspirin; Z87.891 Personal history of nicotine dependence
CPT/HCPCS: 99212

== ENCOUNTER → 2024-01-08 | Outpatient (CLI) | payer MEDICARE | END | disposition home or self-care (01) | LOC: LABWHC1 14:20 | PROVIDERS: ATTEND Family Medicine | DX: E11.9 Type 2 diabetes mellitus without complications (principal) | CPT/HCPCS: 36415; 83036 ==

== ENCOUNTER → 2024-03-06 | Outpatient (CLI) | payer MEDICARE ==
[2024-03-06 14:08] VITALS: BP 132/67; PULSE 60; RESP 16; TEMP 98.3
--- NOTE | 2024-03-06 14:37 | P.PROGSL ---
Subjective DATE: 03/06/2024 FOLLOW UP VISIT. Patient with obstructive sleep apnea hypopnea syndrome return to sleep center for follow-up visit. Information from previous visit have been reviewed. Patient is using PAP equipment every night for the whole night, getting PAP supplies in time. CPAP unit is noisy. [place] sleepiness scale is 3. I checked information from PAP unit. PAP unit pressure 7-18, average 14.6 cm H2O. Usage is 100% for more then 4 hours, average 5.7 hours per night. Leak is 0 l/m, which is in acceptable range. Apnea Hypopnea Index is slightly increased to 7.4. Motor life expectancy exceeded. MEDICATIONS have been reviewed, please see below. During physical exam: GENERAL: A pleasant patient without any distress. VITAL SIGNS: Please see below, weight is 265.5 lbs. HEENT: PERRLA, EOMI.low position of soft palate, Mallapati.4. NECK: Supple. No JVD. LUNGS: Clear to percussion and to auscultation. Good air exchange. No wheezing or rhonchi. HEART: S1, S2 regular. ABDOMEN: Soft and nontender. Obese EXTREMITIES: No clubbing or cyanosis. COUNSELING CENTER DIRECTOR: Awake, alert, and oriented x3. No focal deficit. Impressions: 1. Obstructive sleep apnea-hypopnea syndrome. Patient demonstrated great compliance with treatment, benefiting from treatment. 2. Obesity, BMI 35.9, patient increased weight on 3 pounds comparing with previous visit. 3. Hypertension. 4. Diabetes mellitus. 5. Hyperlipidemia. 6. Acid reflux. 7. BPH. Plan: 1. Continue using PAP equipment every night for the whole night. Prescription to replace CPAP unit to new one. CPAP unit is noisy, motor life expectancy was exceeded. 2. Sleep hygiene with regular time in bed for at least 7.5-8 hours 3. PAP unit should stay lower then position of the head. 4. Advised patient to remove all remaining water from humidifier canister daily and make it dry after each usage. Refill canister with fresh distilled water before each usage. 5. Watching weight. 6. Precautions related to driving. No driving if feel any sleepiness. 7. I will maintain prescription for PAP supplies including mask, tube, filters. 8. Follow up visit in 1-3 months after patient will received new CPAP unit to evaluate compliance with treatment, clinical response on treatment and [place] adjustments related to mask fitting pressure and humidification. Thank you very much for allowing me to participate in the management of your patient. Erick Lee MD, PhD, FAASM. Diplomat of Citizen Of [place] Board of Sleep Medicine, Sleep Medicine Board by Citizen Of [place] Board of Internal Medicine Jail Guard of [facility] [place] Objective - Vital Signs Vital Signs: Vital Signs Temp 98.3 F 03/06/24 14:07 Pulse 60 03/06/24 14:07 Resp 16 03/06/24 14:07 BP 132/67 03/06/24 14:07 Pulse Ox 94 L 03/06/24 14:07 FiO2 Intake & Output 03/05/24 03/06/24 03/06/24 18:59 06:59 18:59 Weight 120.202 kg Home Medications: Home Medications Medication Instructions Recorded Confirmed Type Aspirin [Adult Low Dose Aspirin EC] 81 mg PO DAILY 05/15/19 05/17/22 History Calcium/Magnesium/Zinc 1 each PO DAILY 05/15/19 05/17/22 History [Htqipsf-Bsrjgfcow-Aikm Tablet] Cranberry Fruit Extract [Cranberry] 500 mg PO DAILY 05/15/19 05/17/22 History Esomeprazole Magnesium [NexIUM] 40 mg PO DAILY 05/15/19 05/17/22 History Finasteride [Proscar] 5 mg PO HS 05/15/19 05/17/22 History Ginkgo Biloba 120 mg PO DAILY 05/15/19 05/17/22 History Glucosamine/MSM/Chrond/D3/Bosw 1 each PO BID 05/15/19 05/17/22 History [Wbmtgtgejuv-Svupxh-XCO-D3 Cplt] Multivitamins, Thera [Multivitamin 1 tab PO BID 05/15/19 05/17/22 History (formulary)] [place]-3 Fatty Acids [[place]-3] 1,360 mg PO DAILY 05/15/19 05/17/22 History Simvastatin [Zocor] 40 mg PO HS 05/15/19 05/17/22 History Turmeric Root Extract [Turmeric] 1,000 mg PO TID 05/15/19 05/17/22 History Ubidecarenone [Co Q-10] 100 mg PO BID 05/15/19 05/17/22 History atenoloL [Tenormin] 25 mg PO HS 05/15/19 05/17/22 History metFORMIN HCL [Glucophage] 500 mg PO BID 05/15/19 05/17/22 History Acetaminophen Tab [Tylenol] 650 mg PO Q4H PRN 05/12/22 05/17/22 History Cholecalciferol [Vitamin D3 (10 1 tab PO DAILY 05/12/22 05/17/22 History Mcg = 400 Iu)] Crisetin 1 tab PO BID 05/12/22 05/17/22 History Cyanocobalamin (Vitamin B-12) 5,000 mcg PO DAILY 05/12/22 05/17/22 History [Vitamin B-12] Losartan [Cozaar] 100 mg PO DAILY 05/17/22 05/17/22 History Tamsulosin [Flomax] 0.4 mg PO DAILY 05/17/22 05/17/22 History
== END ==
LOC: 3 N SLEEP 13:31
PROVIDERS: ATTEND Internal Medicine
CPT/HCPCS: 99212

== ENCOUNTER → 2024-05-09 | Outpatient (CLI) | payer MEDICARE ==
[2024-05-09 11:25] VITALS: BP 115/70; PULSE 60; RESP 16; TEMP 98.2
--- NOTE | 2024-05-09 11:47 | P.PROGSL ---
Subjective DATE: 05/09/2024 FOLLOW UP VISIT. Patient with obstructive sleep apnea hypopnea syndrome return to sleep center for follow-up visit. Information from previous visit have been reviewed. This is feels to be Zid with new CPAP unit. Patient is using PAP equipment every night for the whole night, getting PAP supplies in time. The patient does not have significant problems with the mask, PAP unit and humidification. [place] sleepiness scale is 3. I checked information from PAP unit. PAP unit pressure 7-18, average 11.4 cm H2O. Usage is 100% for more then 4 hours, average 5.8 hours per night. Leak is 25 l/m, which is in acceptable range. Apnea Hypopnea Index is increased to 15.9 for the last months, 11.7 for the last week and normal 2.4 for the last night. MEDICATIONS have been reviewed, please see below. During physical exam: GENERAL: A pleasant patient without any distress. VITAL SIGNS: Please see below, weight is 266 pounds lbs. HEENT: PERRLA, EOMI.low position of soft palate, Mallapati 4 . NECK: Supple. No JVD. LUNGS: Clear to percussion and to auscultation. Good air exchange. No wheezing or rhonchi. HEART: S1, S2 regular. ABDOMEN: Soft and nontender. Obese. EXTREMITIES: No clubbing or cyanosis. INSPECTOR RUBBER STAMP DIE: Awake, alert, and oriented x3. No focal deficit. Impressions: 1. Obstructive sleep apnea-hypopnea syndrome. Patient demonstrated great compliance with treatment, benefiting from treatment. Apnea hypopnea index increased comparing with previous visit with new CPAP unit, although pressure is the same as before. 2. Obesity, BMI in the range of 36. 3. Hypertension. 4. Diabetes mellitus. 5. Hyperlipidemia. 6. Acid reflux. 7. BPH. I changed pressure in CPAP unit to start a ramp from 6 cm of water and range of the pressure will be increased to 10-18 cm of water. Plan: 1. Continue using PAP equipment every night for the whole night. 2. Sleep hygiene with regular time in bed for at least 7.5-8 hours 3. PAP unit should stay lower then position of the head. 4. Advised patient to remove all remaining water from humidifier canister daily and make it dry after each usage. Refill canister with fresh distilled water before each usage. 5. Watching weight. 6. Precautions related to driving. No driving if feel any sleepiness. 7. I will maintain prescription for PAP supplies including mask, tube, filters. 8. Follow up visit in 3 months or earlier if patient has any problems. Thank you very much for allowing me to participate in the management of your patient. Erick Lee MD, PhD, FAASM. Diplomat of [place] Board of Sleep Medicine, Sleep Medicine Board by [place] Board of Internal Medicine Frame Hand of [facility] [place] cc: Daniel Perkins MD Objective - Vital Signs Vital Signs: Vital Signs Temp 98.2 F 05/09/24 11:24 Pulse 60 05/09/24 11:24 Resp 16 05/09/24 11:24 BP 115/70 05/09/24 11:24 Pulse Ox 95 05/09/24 11:24 FiO2 Home Medications: Home Medications Medication Instructions Recorded Confirmed Type Aspirin [Adult Low Dose Aspirin EC] 81 mg PO DAILY 05/15/19 05/17/22 History Calcium/Magnesium/Zinc 1 each PO DAILY 05/15/19 05/17/22 History [Kzimkut-Xqqywrkoz-Zxtf Tablet] Cranberry Fruit Extract [Cranberry] 500 mg PO DAILY 05/15/19 05/17/22 History Esomeprazole Magnesium [NexIUM] 40 mg PO DAILY 05/15/19 05/17/22 History Finasteride [Proscar] 5 mg PO HS 05/15/19 05/17/22 History Ginkgo Biloba 120 mg PO DAILY 05/15/19 05/17/22 History Glucosamine/MSM/Chrond/D3/Bosw 1 each PO BID 05/15/19 05/17/22 History [Genpmpdraiw-Yzxwbv-TVV-D3 Cplt] Multivitamins, Thera [Multivitamin 1 tab PO BID 05/15/19 05/17/22 History (formulary)] [place]-3 Fatty Acids [[place]-3] 1,360 mg PO DAILY 05/15/19 05/17/22 History Simvastatin [Zocor] 40 mg PO HS 05/15/19 05/17/22 History Turmeric Root Extract [Turmeric] 1,000 mg PO TID 05/15/19 05/17/22 History Ubidecarenone [Co Q-10] 100 mg PO BID 05/15/19 05/17/22 History atenoloL [Tenormin] 25 mg PO HS 05/15/19 05/17/22 History metFORMIN HCL [Glucophage] 500 mg PO BID 05/15/19 05/17/22 History Acetaminophen Tab [Tylenol] 650 mg PO Q4H PRN 05/12/22 05/17/22 History Cholecalciferol [Vitamin D3 (10 1 tab PO DAILY 05/12/22 05/17/22 History Mcg = 400 Iu)] Crisetin 1 tab PO BID 05/12/22 05/17/22 History Cyanocobalamin (Vitamin B-12) 5,000 mcg PO DAILY 05/12/22 05/17/22 History [Vitamin B-12] Losartan [Cozaar] 100 mg PO DAILY 05/17/22 05/17/22 History Tamsulosin [Flomax] 0.4 mg PO DAILY 05/17/22 05/17/22 History
== END ==
LOC: 3 N SLEEP 10:59
PROVIDERS: ATTEND Internal Medicine
DX: G47.33 Obstructive sleep apnea (adult) (pediatric) (principal); E66.9 Obesity, unspecified; I10 Essential (primary) hypertension; E11.9 Type 2 diabetes mellitus without complications; E78.5 Hyperlipidemia, unspecified; K21.9 Gastro-esophageal reflux disease without esophagitis; N40.0 Benign prostatic hyperplasia without lower urinary tract symptoms; Z68.36 Body mass index [BMI] 36.0-36.9, adult; Z99.89 Dependence on other enabling machines and devices; Z79.84 Long term (current) use of oral hypoglycemic drugs; Z79.899 Other long term (current) drug therapy; Z87.891 Personal history of nicotine dependence
CPT/HCPCS: 99212

== ENCOUNTER → 2024-09-04 | Outpatient (CLI) | payer MEDICARE ==
[2024-09-04 14:35] VITALS: BP 94/58; PULSE 72; RESP 16; TEMP 98.1
--- NOTE | 2024-09-04 14:58 | P.PROGSL ---
Subjective DATE: 09/04/2024 FOLLOW UP VISIT. Patient with obstructive sleep apnea hypopnea syndrome return to sleep center for follow-up visit. Information from previous visit have been reviewed. Patient is using PAP equipment every night for the whole night, getting PAP supplies in time. Sometimes patient has significant leak from the mask [place] sleepiness scale is 2. I checked information from PAP unit. PAP unit pressure 10-18, average 14.9 cm H2O. Usage is 100% for more then 4 hours, average 5.5 hours per night. Leak is significantly increased to 38.2 l/m, patient is using nasal pillow mask with chinstrap. Apnea Hypopnea Index is increased to 15.9 and that include 6.6 central apneas, 5.3 obstructive, and 3.9 unknown. MEDICATIONS have been reviewed, please see below. During physical exam: GENERAL: A pleasant patient without any distress. VITAL SIGNS: Please see below, weight is 262 lbs. HEENT: PERRLA, EOMI.low position of soft palate, Mallapati 4 . NECK: Supple. No JVD. LUNGS: Clear to percussion and to auscultation. Good air exchange. No wheezing or rhonchi. HEART: S1, S2 regular. ABDOMEN: Soft and nontender. Obese EXTREMITIES: No clubbing or cyanosis. GUEST SERVICES OFFICER: Awake, alert, and oriented x3. No focal deficit. Impressions: 1. Obstructive sleep apnea-hypopnea syndrome. Patient demonstrated great compliance with treatment, benefiting from treatment. Apnea hypopnea index still increased and include some central apneas. 2. Obesity, BMI 37.0. 3. Hypertension. 4. BPH. 5. Diabetes mellitus. 6. Hyperlipidemia. 7. Acid reflux. I changed pressure to the range 10-20 cm of water. Plan: 1. Continue using PAP equipment every night for the whole night. 2. Sleep hygiene with regular time in bed for at least 7.5-8 hours 3. PAP unit should stay lower then position of the head. 4. Advised patient to remove all remaining water from humidifier canister daily and make it dry after each usage. Refill canister with fresh distilled water before each usage. 5. Watching weight. 6. Precautions related to driving. No driving if feel any sleepiness. 7. I will maintain prescription for PAP supplies including mask, tube, filters. Patient will try different style of nasal mask with chinstrap. 8. Follow up visit in 2 months or earlier if patient has any problems. Thank you very much for allowing me to participate in the management of your patient. Erick Lee MD, PhD, FAASM. Diplomat of [place] Board of Sleep Medicine, Sleep Medicine Board by [place] Board of Internal Medicine Automatic Lehr Operator of [facility] [place] Objective - Vital Signs Vital Signs: Vital Signs Temp 98.1 F 09/04/24 14:34 Pulse 72 09/04/24 14:34 Resp 16 09/04/24 14:34 BP 94/58 09/04/24 14:34 Pulse Ox 96 09/04/24 14:34 FiO2 Intake & Output 09/03/24 09/04/24 09/04/24 18:59 06:59 18:59 Weight 118.841 kg Home Medications: Home Medications Medication Instructions Recorded Confirmed Type Aspirin [Adult Low Dose Aspirin EC] 81 mg PO DAILY 05/15/19 09/04/24 History Calcium/Magnesium/Zinc 1 each PO DAILY 05/15/19 09/04/24 History [Lqdevfa-Jbaorzpgx-Gedd Tablet] Cranberry Fruit Extract [Cranberry] 500 mg PO DAILY 05/15/19 09/04/24 History Esomeprazole Magnesium [NexIUM] 40 mg PO DAILY 05/15/19 09/04/24 History Finasteride [Proscar] 5 mg PO HS 05/15/19 09/04/24 History Ginkgo Biloba 120 mg PO DAILY 05/15/19 09/04/24 History Glucosamine/MSM/Chrond/D3/Bosw 1 each PO BID 05/15/19 09/04/24 History [Vshulhbwsks-Duykur-GFB-D3 Cplt] Multivitamins, Thera [Multivitamin 1 tab PO BID 05/15/19 09/04/24 History (formulary)] [place]-3 Fatty Acids [[place]-3] 1,360 mg PO DAILY 05/15/19 09/04/24 History Simvastatin [Zocor] 40 mg PO HS 05/15/19 09/04/24 History Turmeric Root Extract [Turmeric] 1,000 mg PO TID 05/15/19 09/04/24 History Ubidecarenone [Co Q-10] 100 mg PO BID 05/15/19 09/04/24 History atenoloL [Tenormin] 25 mg PO HS 05/15/19 09/04/24 History metFORMIN HCL [Glucophage] 500 mg PO BID 05/15/19 09/04/24 History Acetaminophen Tab [Tylenol] 650 mg PO Q4H PRN 05/12/22 09/04/24 History Cholecalciferol [Vitamin D3 (10 1 tab PO DAILY 05/12/22 09/04/24 History Mcg = 400 Iu)] Crisetin 1 tab PO BID 05/12/22 09/04/24 History Cyanocobalamin (Vitamin B-12) 5,000 mcg PO DAILY 05/12/22 09/04/24 History [Vitamin B-12] Losartan [Cozaar] 100 mg PO DAILY 05/17/22 09/04/24 History Tamsulosin [Flomax] 0.4 mg PO DAILY 05/17/22 09/04/24 History
== END ==
LOC: 3 N SLEEP 13:47
PROVIDERS: ATTEND Internal Medicine
DX: E11.9 Type 2 diabetes mellitus without complications (principal); G47.33 Obstructive sleep apnea (adult) (pediatric); E66.9 Obesity, unspecified; I10 Essential (primary) hypertension; N40.0 Benign prostatic hyperplasia without lower urinary tract symptoms; K21.9 Gastro-esophageal reflux disease without esophagitis; E78.5 Hyperlipidemia, unspecified; Z68.37 Body mass index [BMI] 37.0-37.9, adult; Z87.891 Personal history of nicotine dependence
CPT/HCPCS: 99212

== ENCOUNTER 2024-10-11 00:57 | Emergency (ER) | payer MEDICARE ==
[2024-10-11 01:58] VITALS: RESP 18
[2024-10-11 02:13] LABS: Basophils # (A) 0.09 10*3/uL (0.00-0.10); Basophils % (A) 1.1 %; Eosinophils # (A) 0.19 10*3/uL (0.04-0.35); Eosinophils % (A) 2.3 %; HCT 40.8 % (39.6-50.0); HGB 13.9 g/dL (13.0-17.0); Lymphocytes # (A) 2.25 10*3/uL (0.90-5.00); Lymphocytes % (A) 27.8 %; MCH 31.2 pg (27.0-32.0); MCHC 34.1 g/dL (32.0-37.0); MCV 91.7 fL (80.0-97.0); Monocytes # (A) 0.84 10*3/uL (0.20-1.00); Monocytes % (A) 10.4 %; Neutrophils # (A) 4.68 10*3/uL (1.80-7.70); Neutrophils % (A) 57.9 %; Platelet Count 240 10*3/uL (140-440); RBC 4.45 10*6/uL (4.40-5.60); RDW 13.2 % (11.5-14.5); WBC 8.09 10*3/uL (4.50-10.00)
[2024-10-11 02:40] LABS: ALT 21 U/L (4-49); AST 26 U/L (17-59); African American GFR (CKD) 76 (>60 ml/min/1.73 sqM); Albumin 4.5 g/dL (3.5-5.0); Alkaline Phosphatase 61 U/L (38-126); Anion Gap 10 mmol/L; Blood Urea Nitrogen 33 mg/dL (9-20); Carbon Dioxide 24 mmol/L (22-30); Chloride 105 mmol/L (98-107); Glucose 133 mg/dL (74-99); Non-African American GFR(CKD) 66 (>60 ml/min/1.73 sqM); Potassium 4.9 mmol/L (3.5-5.1); Sodium 139 mmol/L (137-145); Total Bilirubin 0.5 mg/dL (0.2-1.3); Total Protein 7.3 g/dL (6.3-8.2)
[2024-10-11 02:43] LABS: Prothrombin Time 10.9 sec (10.0-12.5)
--- NOTE | 2024-10-11 02:50 | XR ---
EXAM: XR Chest, 2 Views CLINICAL HISTORY: ITS.REASON XR Reason: syncope TECHNIQUE: Frontal and lateral views of the chest. COMPARISON: No relevant prior studies available. FINDINGS: Lungs: Dependent atelectasis. Pleural space: Unremarkable. No pneumothorax. Heart: Cardiomegaly. Mediastinum: Large retrocardiac hiatal hernia. Bones/joints: Unremarkable. IMPRESSION: Large retrocardiac hiatal hernia.
[2024-10-11 03:15] LABS: Partial Thromboplastin Time 19.8 sec (22.0-30.0)
--- NOTE | 2024-10-11 03:37 | ED ---
General Adult HPI - General Chief complaint: Dizziness Stated complaint: Dizziness Time Seen by Provider: 10/11/24 01:13 Source: patient Mode of arrival: ambulatory Limitations: no limitations - History of Present Illness Initial comments: This patient is an 84-year-old man who presents to have evaluation for syncopal episode. The patient relates that he was here in the hospital as a visitor while his is a patient. He noticed that he suddenly began feeling very warm and lightheaded. The patient had episode of vomiting and passed out. Loss consciousness was brief and he did not have loss of bladder or bowel continence. No shaking activity noted. -: minutes(s) Severity scale (1-10): 0 Consistency: now resolved Improves with: none Worsens with: none Associated Symptoms: nausea/vomiting Treatments Prior to Arrival: none - Related Data Home Medications Medication Instructions Recorded Confirmed Aspirin [Adult Low Dose Aspirin EC] 81 mg PO DAILY 05/15/19 09/04/24 Calcium/Magnesium/Zinc 1 each PO DAILY 05/15/19 09/04/24 [Ooatpmm-Qbujzkbnv-Qnwv Tablet] Cranberry Fruit Extract [Cranberry] 500 mg PO DAILY 05/15/19 09/04/24 Esomeprazole Magnesium [NexIUM] 40 mg PO DAILY 05/15/19 09/04/24 Finasteride [Proscar] 5 mg PO HS 05/15/19 09/04/24 Ginkgo Biloba 120 mg PO DAILY 05/15/19 09/04/24 Glucosamine/MSM/Chrond/D3/Bosw 1 each PO BID 05/15/19 09/04/24 [Gtbsuzwecvz-Zhnxhp-AQF-D3 Cplt] Multivitamins, Thera [Multivitamin 1 tab PO BID 05/15/19 09/04/24 (formulary)] [place]-3 Fatty Acids [[place]-3] 1,360 mg PO DAILY 05/15/19 09/04/24 Simvastatin [Zocor] 40 mg PO HS 05/15/19 09/04/24 Turmeric Root Extract [Turmeric] 1,000 mg PO TID 05/15/19 09/04/24 Ubidecarenone [Co Q-10] 100 mg PO BID 05/15/19 09/04/24 atenoloL [Tenormin] 25 mg PO HS 05/15/19 09/04/24 metFORMIN HCL [Glucophage] 500 mg PO BID 05/15/19 09/04/24 Acetaminophen Tab [Tylenol] 650 mg PO Q4H PRN 05/12/22 09/04/24 Cholecalciferol [Vitamin D3 (10 1 tab PO DAILY 05/12/22 09/04/24 Mcg = 400 Iu)] Crisetin 1 tab PO BID 05/12/22 09/04/24 Cyanocobalamin (Vitamin B-12) 5,000 mcg PO DAILY 05/12/22 09/04/24 [Vitamin B-12] Losartan [Cozaar] 100 mg PO DAILY 05/17/22 09/04/24 Tamsulosin [Flomax] 0.4 mg PO DAILY 05/17/22 09/04/24 Allergies Allergy/AdvReac Type Severity Reaction Status Date / Time No Known Allergies Allergy Verified 10/11/24 01:07 Review of Systems ROS Statement: Those systems with pertinent positive or pertinent negative responses have been documented in the HPI. ROS Other: All systems not noted in ROS Statement are negative. Constitutional: Denies: fever, chills, weakness Eyes: Denies: vision change Respiratory: Denies: cough, dyspnea Cardiovascular: Reports: syncope. Denies: chest pain, palpitations, orthopnea, edema Gastrointestinal: Reports: vomiting. Denies: abdominal pain, diarrhea, hematemesis, melena, hematochezia Genitourinary: Denies: dysuria, hematuria Musculoskeletal: Denies: back pain Skin: Denies: rash Neurological: Denies: headache, weakness Past Medical History Past Medical History: Diabetes Mellitus, GERD/Reflux, Hypertension, Neurologic Disorder, Prostate Disorder, Sleep Apnea/CPAP/BIPAP Additional Past Medical History / Comment(s): difficulty with swallowing. has cpap machine. neuropathy below opal knees. tinnitus,vertigo, History of Any Multi-Drug Resistant Organisms: None Reported Past Surgical History: Adenoidectomy, Hernia Repair, Tonsillectomy Additional Past Surgical History / Comment(s): opal inguinal hernia repair Past Anesthesia/Blood Transfusion Reactions: No Reported Reaction Past Psychological History: No Psychological Hx Reported Smoking Status: Former smoker Past Alcohol Use History: None Reported Past Drug Use History: None Reported - Past Family History Mother Family Medical History: Cancer Additional Family Medical History / Comment(s): thyroid cancer General Exam Limitations: no limitations General appearance: alert, in no apparent distress Head exam: Present: atraumatic, normocephalic Eye exam: Present: normal appearance. Absent: scleral icterus, conjunctival injection, nystagmus Neck exam: Present: normal inspection, full ROM Respiratory exam: Present: normal lung sounds bilaterally. Absent: respiratory distress, wheezes, rales, rhonchi, stridor, accessory muscle use Cardiovascular Exam: Present: regular rate, normal rhythm, normal heart sounds. Absent: systolic murmur, diastolic murmur, rubs, gallop GI/Abdominal exam: Present: soft. Absent: distended, tenderness, guarding, rebound, rigid, mass Extremities exam: Present: normal inspection, normal capillary refill. Absent: pedal edema, calf tenderness Back exam: Present: normal inspection. Absent: CVA tenderness (R), CVA tenderness (L), vertebral tenderness Neurological exam: Present: alert, CN II-XII intact. Absent: motor sensory deficit Skin exam: Present: warm, dry, intact, normal color. Absent: rash Course Vital Signs 10/11/24 10/11/24 10/11/24 01:01 01:56 03:50 Temperature 98.1 F 98.7 F Pulse Rate 80 75 70 Respiratory 22 18 18 Rate Blood Pressure 189/114 166/91 150/88 O2 Sat by Pulse 96 95 98 Oximetry EKG Findings - EKG Results: EKG: interpreted by JULEE, sinus rhythm (Rate 72 bpm) - Blocks, [place], Hypertrophy, ST Abn: AV and intraventricular conduction: right bundle branch block (fixed/intermittent, complete/incomplete) QRS axis and voltage: left axis deviation (-30 to -90) Chamber hypertrophy or enlargement: only voltage criteria for left ventricular hypertrophy Medical Decision Making - Medical Decision Making The patient had chest x-ray that I interpreted as negative for acute infiltrate, pneumothorax, congestive heart failure Was pt. sent in by a medical professional or institution (, PA, NUTRITIONISTS, urgent care, hospital, or residential...) When possible be specific @ -[No] Did you speak to anyone other than the patient for history (EMS, parent, family, police, friend...)? What history was obtained from this source @ -[No] Did you review nursing and triage notes (agree or disagree)? Why? @ -[I reviewed and agree with nursing and triage notes] Were old charts reviewed (outside hosp., previous admission, EMS record, old EKG, old radiological studies, urgent care reports/EKG's, residential records)? Report findings @ -[No old charts were reviewed] Differential Diagnosis (chest pain, altered mental status, abdominal pain women, abdominal pain men, vaginal bleeding, weakness, fever, dyspnea, syncope, headache, dizziness, GI bleed, back pain, seizure, CVA, palpatations, mental health, musculoskeletal)? @ -[Differential Syncope: Valvular disease, hypertrophic cardiomyopathy, pulmonary embolism, tamponade, tachycardia, bradycardia, VA, hypovolemia, hemorrhage, dissection, anemia, intracranial hemorrhage, seizure, hypoglycemia, carbon monoxide poisoning, this is not meant to be an all-inclusive list. EKG interpreted by me (3pts min.). @ -[I interpreted as above] X-rays interpreted by me (1pt min.). @ -[I interpreted as above CT interpreted by me (1pt min.). @ -[None done] U/S interpreted by me (1pt. min.). @ -[None done] What testing was considered but not performed or refused? (CT, X-rays, U/S, labs)? Why? @ -[None] What meds were considered but not given or refused? Why? @ -[None] Did you discuss the management of the patient with other professionals (professionals i.e. , PA, NUTRITIONISTS, lab, RT, psych nurse, foster care social worker, obedience trainer, teacher, program officer, case monitor)? Give summary @ -[No] Was smoking cessation discussed for >3mins.? @ -[No] Was critical care preformed (if so, how long)? @ -[No] Were there social determinants of health that impacted care today? How? (Homelessness, low income, unemployed, alcoholism, drug addiction, transportation, low edu. Level, literacy, decrease access to med. care, [facility], rehab)? @ -[No] Was there de-escalation of care discussed even if they declined (Discuss DNR or withdrawal of care, Hospice)? DNR status @ -[No] What co-morbidities impacted this encounter? (DM, HTN, Smoking, COPD, CAD, Cancer, CVA, ARF, Chemo, Hep., AIDS, mental health diagnosis, sleep apnea, morbid obesity)? @ -[None] Was patient admitted / discharged? Hospital course, mention meds given and route, prescriptions, significant lab abnormalities, going to OR and other pertinent info. @ -[Patient is an 84-year-old man here to have evaluation after syncopal episode. The patient's physical exam is benign. The workup is unremarkable. Given the patient's age on 3 reevaluated I did offer admission for telemetry monitoring, but the patient states he is feeling better and would prefer to go home and he will follow-up with cardiology as outpatient. Discussed return parameters and appropriate further care follow-up Undiagnosed new problem with uncertain prognosis? @ -[No] Drug Therapy requiring intensive monitoring for toxicity (Heparin, Nitro, Insulin, Cardizem)? @ -[No] Were any procedures done? @ -[No] Diagnosis/symptom? @ -[Acute syncopal episode Acute, or Chronic, or Acute on Chronic? @ -[Acute Uncomplicated (without systemic symptoms) or Complicated (systemic symptoms)? @ -[d uncomplicated Side effects of treatment? @ -[No] Exacerbation, Progression, or Severe Exacerbation? @ -[No] Poses a threat to life or bodily function? How? (Chest pain, USA, VA, pneumonia, PE, COPD, DKA, ARF, appy, cholecystitis, CVA, Diverticulitis, Homicidal, Suicidal, threat to staff... and all critical care pts) @ -[There is small risk of intermittent arrhythmia, offered admission but the patient declining, will return if any symptoms recur, will follow-up with cardiology. All treatments are based on ideal body weight as in ED triage - Lab Data Result diagrams: 10/11/24 01:53 10/11/24 01:53 Lab Results 10/11/24 10/11/24 10/11/24 Range/Units 01:53 01:53 01:53 WBC 8.09 (4.50-10.00) 10*3/uL RBC 4.45 (4.40-5.60) 10*6/uL Hgb 13.9 (13.0-17.0) g/dL Hct 40.8 (39.6-50.0) % MCV 91.7 (80.0-97.0) fL MCH 31.2 (27.0-32.0) pg MCHC 34.1 (32.0-37.0) g/dL Plt Count 240 (140-440) 10*3/uL MPV 10.0 (9.5-12.2) fL Immature Gran % (Auto) 0.5 % Neutrophils % 57.9 % Lymphocytes % 27.8 % Monocytes % 10.4 % Eosinophils % 2.3 % Basophils % 1.1 % Immature Gran # 0.04 (0.00-0.04) 10*3/uL Neutrophils # 4.68 (1.80-7.70) 10*3/uL Lymphocytes # 2.25 (0.90-5.00) 10*3/uL Monocytes # 0.84 (0.20-1.00) 10*3/uL Eosinophils # 0.19 (0.04-0.35) 10*3/uL Basophils # 0.09 (0.00-0.10) 10*3/uL PT 10.9 (10.0-12.5) sec INR 1.0 (<1.2) APTT 19.8 L (22.0-30.0) sec Sodium 139 (137-145) mmol/L Potassium 4.9 (3.5-5.1) mmol/L Chloride 105 (98-107) mmol/L Carbon Dioxide 24 (22-30) mmol/L Anion Gap 10 mmol/L BUN 33 H (9-20) mg/dL Creatinine 1.06 (0.66-1.25) mg/dL Est GFR (CKD-EPI)AfAm 76 (>60 ml/min/1.73 sqM) Est GFR (CKD-EPI)NonAf 66 (>60 ml/min/1.73 sqM) Glucose 133 H (74-99) mg/dL Calcium 10.0 (8.4-10.2) mg/dL Total Bilirubin 0.5 (0.2-1.3) mg/dL AST 26 (17-59) U/L ALT 21 (4-49) U/L Alkaline Phosphatase 61 (38-126) U/L Troponin I (0.000-0.034) ng/mL Total Protein 7.3 (6.3-8.2) g/dL Albumin 4.5 (3.5-5.0) g/dL 10/11/24 Range/Units 01:53 WBC (4.50-10.00) 10*3/uL RBC (4.40-5.60) 10*6/uL Hgb (13.0-17.0) g/dL Hct (39.6-50.0) % MCV (80.0-97.0) fL MCH (27.0-32.0) pg MCHC (32.0-37.0) g/dL Plt Count (140-440) 10*3/uL MPV (9.5-12.2) fL Immature Gran % (Auto) % Neutrophils % % Lymphocytes % % Monocytes % % Eosinophils % % Basophils % % Immature Gran # (0.00-0.04) 10*3/uL Neutrophils # (1.80-7.70) 10*3/uL Lymphocytes # (0.90-5.00) 10*3/uL Monocytes # (0.20-1.00) 10*3/uL Eosinophils # (0.04-0.35) 10*3/uL Basophils # (0.00-0.10) 10*3/uL PT (10.0-12.5) sec INR (<1.2) APTT (22.0-30.0) sec Sodium (137-145) mmol/L Potassium (3.5-5.1) mmol/L Chloride (98-107) mmol/L Carbon Dioxide (22-30) mmol/L Anion Gap mmol/L BUN (9-20) mg/dL Creatinine (0.66-1.25) mg/dL Est GFR (CKD-EPI)AfAm (>60 ml/min/1.73 sqM) Est GFR (CKD-EPI)NonAf (>60 ml/min/1.73 sqM) Glucose (74-99) mg/dL Calcium (8.4-10.2) mg/dL Total Bilirubin (0.2-1.3) mg/dL AST (17-59) U/L ALT (4-49) U/L Alkaline Phosphatase (38-126) U/L Troponin I <0.012 (0.000-0.034) ng/mL Total Protein (6.3-8.2) g/dL Albumin (3.5-5.0) g/dL Disposition Clinical Impression: Syncope Disposition: HOME SELF-CARE Condition: Good Instructions (If sedation given, give patient instructions): Syncope (DC) Is patient prescribed a controlled substance at d/c from ED?: No Referrals: Daniel Perkins MD [Primary Care Provider] - 1-2 days
[2024-10-11 03:52] VITALS: BP 150/88; PULSE 70; TEMP 98.7
== END 2024-10-11 03:52 | disposition home or self-care (01) ==
LOC: EC 00:57
DX: R55 Syncope and collapse (principal); Z87.891 Personal history of nicotine dependence
CPT/HCPCS: 36415; 71046; 80053; 84484; 85025; 85610; 85730; 93005; 99284

== ENCOUNTER → 2024-11-06 | Outpatient (CLI) | payer MEDICARE ==
--- NOTE | 2024-11-06 14:40 | P.PROGSL ---
Subjective DATE: 11/06/2024 FOLLOW UP VISIT. Patient with obstructive sleep apnea hypopnea syndrome return to sleep center for follow-up visit. Information from previous visit have been reviewed. Patient is using PAP equipment every night for the whole night, getting PAP supplies in time. The patient does not have significant problems with the mask, PAP unit and humidification. Novi sleepiness scale is 4, which is normal. I checked information from PAP unit. PAP unit pressure 10-20, average 14.0 cm H2O. Usage is % for more then 4 hours, average 14.0 hours per night. Leak is 28.9 l/m, which is in acceptable range. Apnea Hypopnea Index is 7.0, which showed significant improvements, manage with previous visit when it was 15.9 and pressure was increased. MEDICATIONS have been reviewed, please see below. During physical exam: GENERAL: A pleasant patient without any distress. VITAL SIGNS: Please see below, weight is 262 lbs. HEENT: PERRLA, EOMI.low position of soft palate, [place]ati 4. NECK: Supple. No JVD. LUNGS: Clear to percussion and to auscultation. Good air exchange. No wheezing or rhonchi. HEART: S1, S2 regular. ABDOMEN: Soft and nontender. Slightly obese EXTREMITIES: No clubbing or cyanosis. [employer]: Awake, alert, and oriented x3. No focal deficit. Impressions: 1. Obstructive sleep apnea-hypopnea syndrome. Patient demonstrated great compliance with treatment, benefiting from treatment. 2. Obesity, BMI 36.5. 3. Hypertension. 4. Hyperlipidemia. 5. Diabetes mellitus. 6. Acid reflux. Plan: 1. Continue using PAP equipment every night for the whole night. 2. Sleep hygiene with regular time in bed for at least 7.5-8 hours 3. PAP unit should stay lower then position of the head. 4. Advised patient to remove all remaining water from humidifier canister daily and make it dry after each usage. Refill canister with fresh distilled water before each usage. 5. Watching and losing weight. 6. Precautions related to driving. No driving if feel any sleepiness. 7. I will maintain prescription for PAP supplies including mask, tube, filters. 8. Follow up visit in 8 months or earlier if patient has any problems. Thank you very much for allowing me to participate in the management of your patient. Erick Lee MD, PhD, FAASM. Diplomat of [place] [employer], Sleep Medicine Board by [place] [employer] Technical Aid of [facility] [place] Objective Home Medications: Home Medications Medication Instructions Recorded Confirmed Type Aspirin [Adult Low Dose Aspirin EC] 81 mg PO DAILY 05/15/19 09/04/24 History Calcium/Magnesium/Zinc 1 each PO DAILY 05/15/19 09/04/24 History [Dlxdjca-Mcnjvlbtk-Owhb Tablet] Cranberry Fruit Extract [Cranberry] 500 mg PO DAILY 05/15/19 09/04/24 History Esomeprazole Magnesium [NexIUM] 40 mg PO DAILY 05/15/19 09/04/24 History Finasteride [Proscar] 5 mg PO HS 05/15/19 11/06/24 History Ginkgo Biloba 120 mg PO DAILY 05/15/19 09/04/24 History Glucosamine/MSM/Chrond/D3/Bosw 1 each PO BID 05/15/19 09/04/24 History [Twhkdifgzzp-Qobbue-RBY-D3 Cplt] Multivitamins, Thera [Multivitamin 1 tab PO BID 05/15/19 09/04/24 History (formulary)] [place]-3 Fatty Acids [[place]-3] 1,360 mg PO DAILY 05/15/19 09/04/24 History Simvastatin [Zocor] 40 mg PO HS 05/15/19 11/06/24 History Turmeric Root Extract [Turmeric] 1,000 mg PO TID 05/15/19 09/04/24 History Ubidecarenone [Co Q-10] 100 mg PO BID 05/15/19 09/04/24 History atenoloL [Tenormin] 25 mg PO HS 05/15/19 11/06/24 History metFORMIN HCL [Glucophage] 500 mg PO BID 05/15/19 11/06/24 History Acetaminophen Tab [Tylenol] 650 mg PO Q4H PRN 05/12/22 09/04/24 History Cholecalciferol [Vitamin D3 (10 1 tab PO DAILY 05/12/22 09/04/24 History Mcg = 400 Iu)] Crisetin 1 tab PO BID 05/12/22 09/04/24 History Cyanocobalamin (Vitamin B-12) 5,000 mcg PO DAILY 05/12/22 09/04/24 History [Vitamin B-12] Losartan [Cozaar] 100 mg PO DAILY 05/17/22 11/06/24 History Tamsulosin [Flomax] 0.4 mg PO DAILY 05/17/22 11/06/24 History
== END ==
LOC: 3 N SLEEP 13:37
PROVIDERS: ATTEND Internal Medicine
DX: G47.33 Obstructive sleep apnea (adult) (pediatric) (principal); I10 Essential (primary) hypertension; E78.5 Hyperlipidemia, unspecified; E11.9 Type 2 diabetes mellitus without complications; K21.9 Gastro-esophageal reflux disease without esophagitis; E66.9 Obesity, unspecified; Z68.36 Body mass index [BMI] 36.0-36.9, adult; Z99.89 Dependence on other enabling machines and devices; Z87.891 Personal history of nicotine dependence
CPT/HCPCS: 99212